=== PATIENT | female | born 1975 | race Caucasian/White ===

== ENCOUNTER 2018-07-17 10:37 | Emergency (ER) | payer MEDICAID ==
--- NOTE | 2018-07-17 11:09 | EDPHY ---
H & P Time Seen by Provider: 07/17/18 11:07 HPI/ROS: CHIEF COMPLAINT: Right foot pain HISTORY OF PRESENT ILLNESS: 42-year-old female via private vehicle complaining of acute right 1st great toe and 1st metatarsal pain after she was walking [place] a [place] and her foot slid into a crack. This occurred yesterday. She is able to bear weight albeit with pain. PHYSICAL EXAM (Prior to examination, patient consented to physical exam, hands were washed and my usual and customary physical exam procedures followed) 1) GENERAL: Well-developed, well-nourished, alert and oriented. Appears to be in no acute distress. 2) HEAD: Normocephalic 3) HEENT: Pupils equal, round, reactive to light bilaterally. 4) LUNGS: Breathing comfortably. 5) MUSCULOSKELETAL: Ecchymosis and tender to palpation right great toe, right 1st MTP, distal 1st metatarsal. Remainder of foot including 5th metatarsal nontender. Ankle nontender. Tibia and fibula nontender. proximal tibia and fibula nontender .5th MT nontender negative Ramirez test, compartments soft 6) SKIN: Ecchymosis otherwise negative. No laceration no abrasion no puncture wound 7) VASCULAR: DP,PT pulses and cap refill present and brisk DIFFERENTIAL DIAGNOSIS: in no particular order including but not limited to fracture, sprain, compartment syndrome Procedure: Crutches indications for crutch use discussed with patient. Patient fitted for crutches by ER staff. Observed ambulating with crutches. I think the patient has the capacity to safely use crutches. Usual and customary crutch walking precautions provided Procedure: Splint A postop shoe splint was applied by ER racking technician. After application of the splint I returned and re-examined the patient. The splint was adequately immobilizing the joint and distal to the splint the patient's circulation and sensation were intact. Patient shows no signs of compartment syndrome. Was given orthopedic precautions. Smoking Status: Never smoked Constitutional: Initial Vital Signs Temperature (C) 36.7 C 07/17/18 10:42 Heart Rate 76 07/17/18 10:42 Respiratory Rate 17 07/17/18 10:42 Blood Pressure 116/86 H 07/17/18 10:42 O2 Sat (%) 96 07/17/18 10:42 O2 Delivery Mode Room Air Allergies/Adverse Reactions: Penicillins Allergy (Verified 07/17/18 10:41) Sulfa (Sulfonamide Antibiotics) Allergy (Verified 07/17/18 10:41) Home Medications: Medication Instructions Recorded Citalopram 07/17/18 Hydrocodone/APAP 5/325 [[place] 1 tab PO Q6 PRN #7 tab 07/17/18 5/325 (RX)] Propranolol HCl 07/17/18 Sifrol 07/17/18 MDM/Departure - MDM Imaging Results: Imaging Impressions Foot X-Ray 07/17/18 11:09 Impression: Comminuted intra-articular fracture through the base of the distal phalanx of the great toe. ED Course/Re-evaluation: I saw this patient independently based on established practice protocols. Care of patient under supervision of secondary supervising physician Dr Hans Fernández. Patient is neurovascularly intact with no evidence of infection or compartment syndrome. Usual and customary orthopedic precautions instructions provided. Recommend orthopedic follow-up. She feels comfortable being discharged. Tylenol Motrin for pain. Elevation. - Depart Disposition: Home, Routine, Self-Care Clinical Impression: Fracture of distal phalanx of right great toe Qualifiers: Encounter type: initial encounter Fracture type: closed Fracture alignment: nondisplaced Qualified Code(s): S92.424A - Nondisplaced fracture of distal phalanx of right great toe, initial encounter for closed fracture Condition: Good Instructions: Toe Fracture (ED) Additional Instructions: Return to the ER immediately if you experience discoloration, have worsening pain, numbness, tingling, or any other symptoms that concern you. If you received x-rays in the emergency department today, be advised, that ligamentous , tendon, muscular, and other non-bony injury cannot be fully ruled out. Try to keep your affected extremity elevated above the level of your chest, and keep cold packs on the affected area, for the next 48 hours. Stand Alone Forms: Work Excuse Prescriptions: Hydrocodone/APAP 5/325 [[place] 5/325 (RX)] 1 tab PO Q6 PRN #7 tab PRN Reason: Pain, Severe Referrals: Torres Interiano MD [Doctor of Podiatric Medicine] - As per Instructions
[2018-07-17 11:52] VITALS: BP 116/78
== END 2018-07-17 12:06 | disposition home or self-care (01) ==
DX: S92.424A Nondisplaced fracture of distal phalanx of right great toe, initial encounter for closed fracture (principal); W01.0XXA Fall on same level from slipping, tripping and stumbling without subsequent striking against object, initial encounter; Y92.828 Other wilderness area as the place of occurrence of the external cause; Y93.01 Activity, walking, marching and hiking; Y99.9 Unspecified external cause status
CPT/HCPCS: L4386